=== PATIENT | male | born 1980 | race African-American/Black ===

== ENCOUNTER 2022-01-05 20:01 | Emergency (ER) | payer SELFPAY ==
[~2022-01-05] VITALS: Ht 180.3 cm; Wt 132.0 kg
[2022-01-05] MEDS ORDERED: KETOROLAC 60MG/2ML VIAL IM ONE (21:30)
[2022-01-05 21:33] VITALS: BP 160/95
== END 2022-01-05 22:31 | disposition home or self-care (01) ==
LOC: ER 20:23
DX: M25.561 Pain in right knee (principal); M25.562 Pain in left knee; I10 Essential (primary) hypertension
CPT/HCPCS: 73562; 96372; 99283; J1885